=== PATIENT | female | born 1940 | race Caucasian/White ===

== ENCOUNTER 2020-07-05 09:26 | Outpatient (CLI) | payer MEDICARE | END 2020-07-05 09:27 | disposition home or self-care (01) | LOC: CSHMRI 09:26 | PROVIDERS: ATTEND Internal Medicine Hematology & Oncology | DX: C49.8 Malignant neoplasm of overlapping sites of connective and soft tissue (principal); R93.7 Abnormal findings on diagnostic imaging of other parts of musculoskeletal system; S22.081A Stable burst fracture of T11-T12 vertebra, initial encounter for closed fracture; Z98.890 Other specified postprocedural states | CPT/HCPCS: 72157 ==

== ENCOUNTER 2020-10-09 08:19 | Outpatient (CLI) | payer MEDICARE | END 2020-10-09 08:20 | disposition home or self-care (01) | LOC: CSHCT 08:19 | PROVIDERS: ATTEND Internal Medicine Hematology & Oncology | DX: C80.1 Malignant (primary) neoplasm, unspecified (principal) | CPT/HCPCS: 71260; 74177; 82565 ==

== ENCOUNTER 2022-02-04 08:25 | Outpatient (CLI) | payer MEDICARE | END 2022-02-04 08:26 | disposition home or self-care (01) | LOC: CSHCT 08:25 | PROVIDERS: ATTEND Internal Medicine Hematology & Oncology | DX: C49.8 Malignant neoplasm of overlapping sites of connective and soft tissue (principal); N20.0 Calculus of kidney; Z98.890 Other specified postprocedural states; M48.8X4 Other specified spondylopathies, thoracic region | CPT/HCPCS: 71260; 74177; 82565 ==

== ENCOUNTER 2023-02-03 08:05 | Outpatient (CLI) | payer MEDICARE ==
[2023-02-03] MEDS ORDERED: Iopamidol 300 61% 100 ML VIAL FS ONE (13:43)
== END 2023-02-03 08:06 | disposition home or self-care (01) ==
LOC: CSHCT 08:05
PROVIDERS: ATTEND Internal Medicine Hematology & Oncology
DX: C49.8 Malignant neoplasm of overlapping sites of connective and soft tissue (principal); J98.59 Other diseases of mediastinum, not elsewhere classified; N20.0 Calculus of kidney; Z98.890 Other specified postprocedural states; M85.88 Other specified disorders of bone density and structure, other site
CPT/HCPCS: 71260; 74177; 82565; Q9967